=== PATIENT | male | born 1965 | race Caucasian/White ===

== ENCOUNTER 2018-07-29 06:20 | Day surgery (SDC) | END 2018-07-29 11:35 | disposition home or self-care (01) ==

== ENCOUNTER 2019-05-14 09:00 | Day surgery (SDC) | payer BC ==
[~2019-05-14] VITALS: Ht 170.2 cm; Wt 76.2 kg
[2019-05-14 11:26] VITALS: Ht 170.2 cm; Wt 76.2 kg
[2019-05-14 11:31] VITALS: BP 135/74; PULSE 76; RESP 18
[2019-05-14 11:48] VITALS: BP 114/65; PULSE 65; RESP 20
[2019-05-14] MEDS ORDERED: PROPOFOL 40 ML ONE (12:06)
[2019-05-14] MEDS ORDERED: LIDOCAINE 2% (SDV) 5 ML INJ ONE (12:06)
[2019-05-14] MEDS ORDERED: ONDANSETRON 4 MG INJ IV PRN (12:30)
[2019-05-14] MEDS ORDERED: morphine 2 MG INJ IV PRN (12:30)
[2019-05-14 13:14] VITALS: BP 102/57; RESP 20
== END 2019-05-14 14:02 | disposition home or self-care (01) ==
LOC: GIL 09:00
PROVIDERS: ATTEND Internal Medicine Gastroenterology
DX: Z12.11 Encounter for screening for malignant neoplasm of colon (principal); D12.8 Benign neoplasm of rectum; K64.9 Unspecified hemorrhoids
CPT/HCPCS: 45380; 88305; Z7610